=== PATIENT | male | born 1970 | race Caucasian/White ===

== ENCOUNTER 2016-06-23 16:18 | Emergency (ER) | payer OTHER | END 2016-06-23 17:48 | disposition home or self-care (01) | DX: S20.219A Contusion of unspecified front wall of thorax, initial encounter (principal); V00.311A Fall from snowboard, initial encounter; Y93.23 Activity, snow (alpine) (downhill) skiing, snowboarding, sledding, tobogganing and snow tubing; Y92.89 Other specified places as the place of occurrence of the external cause; Z87.891 Personal history of nicotine dependence ==

== ENCOUNTER 2018-07-05 14:57 | Outpatient (CLI) | payer OTHER ==
--- NOTE | 2018-07-06 11:30 | Ultrasound Report ---
Reason: BONE SOFT TISSUE SKIN NEOPLASM UNSPEC BEHAVIOR Procedure Date: 07/05/2018 Accession Number: [id number] / [id number] Procedure: US - Head or Neck Soft Tissue CPT Code: FULL RESULT: EXAM: LEFT POSTERIOR NECK ULTRASOUND, LIMITED EXAM DATE: 07/05/2018 03:08 PM. CLINICAL HISTORY: 47-year-old male with left neck mass for several years, increasing in size over the past year. Intermittent pressure and itchiness. COMPARISON: None. TECHNIQUE: Real-time sonographic imaging was performed in the area of palpable concern left posterior neck by the hardware technician utilizing color-flow. Limited scanning on the contralateral side for comparison. Multiple apprenticeship training representative static images were saved for review. FINDINGS: In the area of palpable concern left posterior neck there is an ovoid well-circumscribed solid nonvascular heterogeneous mass, predominantly hypoechoic, with central increased density, 2.6 x 1.2 x 2.0 cm. No additional mass or adenopathy noted. No similar finding on the contralateral side. No overlying skin thickening, edema or increased vascularity. IMPRESSION: Probable mildly to moderately enlarged left posterior neck lymph node in area of palpable concern, 2.6 cm in maximum diameter. Neck CT without and with contrast would be most useful for further assessment. No other abnormalities noted or similar finding on the contralateral side. RADIA
== END 2018-07-05 14:58 | disposition home or self-care (01) ==
LOC: DI 14:57
PROVIDERS: ATTEND Physician Assistant Medical
DX: D49.2 Neoplasm of unspecified behavior of bone, soft tissue, and skin (principal)
CPT/HCPCS: 76536

== ENCOUNTER 2018-07-12 07:08 | Outpatient (CLI) | payer OTHER ==
[2018-07-12] MEDS ORDERED: IOVERSOL 320 100 ML VIAL IVP ONE ×2 (07:18→07:56)
--- NOTE | 2018-07-12 08:58 | CT Report ---
Reason: BONE SOFT TISSUE SKIN NEOPLASM UNSP BEHAVIOR Procedure Date: 07/12/2018 Accession Number: [id number] / [id number] Procedure: CT - SOFT TISSUE NECK W CPT Code: FULL RESULT: EXAM: CT SOFT TISSUE NECK WITH CONTRAST. EXAM DATE: 07/12/2018 07:33 AM. HISTORY: Left neck mass for several years increasing in size over the past year, intermittent pressures and itchiness. Ultrasound identifies a 2.6 x 1.2 x 2.0 cm hypoechoic lesion in the left posterior neck with central hyperechogenicity. COMPARISONS: Ultrasound 07/05/2018. TECHNIQUE: Routine soft tissue neck CT protocol. Reconstructions: Coronal and sagittal. IV contrast: OPTI 320 80mL. In accordance with CT protocol optimization, one or more of the following dose reduction techniques were utilized for this exam: automated exposure control, adjustment of mA and/or KV based on patient size, or use of iterative reconstructive technique. FINDINGS: Radiopaque skin marker placed over the lesion in the left posterior neck (image 44 series 3). Deep to the skin marker in the superficial subcutaneous fat overlying the left sternocleidomastoid muscle at the level of the inferior parotid is a 15 x 20 x 22 mm hypodense (less than 20 HU) cystic/cystlike lesion. There is no apparent mural nodularity, thickened peripheral enhancement or surrounding fat stranding. There is no evidence for lymphadenopathy by size criteria. Visualized intracranial contents appear normal. Limited evaluation of the intracranial arterial and dural venous sinus structures are unremarkable. There is no mass, mass effect or midline shift or hydrocephalus. Orbits appear unremarkable. There is near complete opacification of the ethmoid sinus. Frothy secretions seen in bilateral maxillary sinus antra. Infratemporal fossa, loss prevention and safety manager space, parapharyngeal space and retropharyngeal space appear normal. Tongue base, floor of mouth, and mobile tongue appear normal. Parotid glands and submandibular glands appear normal. There is no evidence for sialolithiasis, or sialoadenitis. Nasopharyngeal, oropharyngeal, hypopharyngeal mucosa appear unremarkable. Vallecula and piriform sinus appear normal. Larynx, subglottic trachea appear normal. Thyroid gland appear unremarkable. Visualized aortic arch and pulmonary artery appear unremarkable. Visualized lungs are clear. Carotid space appear unremarkable. Visualized bilateral vertebral arteries appear unremarkable. Mild multilevel degenerative changes of the cervical spine. No suspicious lytic or sclerotic osseous lesions. IMPRESSION: 1. In the left posterior neck, subcutaneous fat, superficial to the left sternocleidomastoid muscle is a 15 x 20 x 22 mm homogeneously hypodense (less than 20 HU) cystic/cystlike lesion. This site corresponds to site of symptom, correlating deep to the radiopaque skin marker. CT appearance most suspicious for sebaceous cyst. There is no fat stranding or thickened peripheral enhancement to suggest superimposed infection. Location superficial to the sternocleidomastoid muscle is atypical for branchial cleft cyst. Other differential considerations such as lymphatic malformation or cystic lymphadenopathy considered less likely. 2. Otherwise normal CT of the soft tissue neck. RADIA
== END 2018-07-12 07:09 | disposition home or self-care (01) ==
LOC: DI 07:08
PROVIDERS: ATTEND Physician Assistant Medical
DX: D49.2 Neoplasm of unspecified behavior of bone, soft tissue, and skin (principal)
CPT/HCPCS: 70491; Q9967

== ENCOUNTER 2019-03-10 07:07 | Day surgery (SDC) | payer OTHER ==
[2019-03-10] MEDS ORDERED: fentaNYL 100 MCG/2 ML VIAL IVP ONE (07:08)
[2019-03-10] MEDS ORDERED: MIDAZOLAM 2 MG/2 ML VIAL IVP ONE (07:08)
[2019-03-10] MEDS ORDERED: LACTATED RINGERS 1,000 ML IV ONE (07:43)
[2019-03-10 10:03] VITALS: BP 95/54
== END 2019-03-10 07:08 | disposition home or self-care (01) ==
LOC: SDS 07:07
PROVIDERS: ATTEND Surgery
PROC: 0DJD8ZZ Inspection of Lower Intestinal Tract, Via Natural or Artificial Opening Endoscopic (ICD-10-PCS; principal; 2019-03-10 08:45)
DX: Z12.11 Encounter for screening for malignant neoplasm of colon (principal); K64.8 Other hemorrhoids; Z87.891 Personal history of nicotine dependence
CPT/HCPCS: 45378; J7120

== ENCOUNTER 2019-09-30 09:48 | Emergency (ER) | payer OTHER ==
[2019-09-30 10:36] LABS: BASOPHILS # (AUTO) 0.1 10^3/uL (0.0-0.1); BASOPHILS % (AUTO) 1.3 %; EOSINOPHILS # (AUTO) 0.3 10^3/uL (0.0-0.7); EOSINOPHILS % (AUTO) 4.1 %; HGB - HEMOGLOBIN 15.6 g/dL (14.0-18.0); LYMPHOCYTES # (AUTO) 2.1 10^3/uL (1.5-3.5); LYMPHOCYTES % (AUTO) 30.4 %; MEAN CORPUSCULAR HEMOGLOBIN 30.6 pg (27.0-31.0); MEAN PLATELET VOLUME 10.2 fL (7.4-11.4); MONOCYTES # (AUTO) 0.4 10^3/uL (0.0-1.0); MONOCYTES % (AUTO) 5.3 %; NEUTROPHILS % (AUTO) 58.6 %; PLT - PLATELET COUNT 227 10^3/uL (130-450); RED CELL DISTRIBUTION WIDTH 12.8 % (12.0-15.0); WHITE BLOOD COUNT 6.8 x10^3/uL (4.8-10.8)
--- NOTE | 2019-09-30 10:38 | XRAY Report ---
Reason: CHEST PAIN,COUGH SOA Procedure Date: 09/30/2019 Accession Number: [id number] / [id number] Procedure: XR - Chest 2 View X-Ray CPT Code: 08142 Final Report FULL RESULT: EXAM: CHEST RADIOGRAPHY EXAM DATE: 09/30/2019 10:21 AM. CLINICAL HISTORY: CHEST PAIN, COUGH SOA. COMPARISON: [facility] W/PA CHEST LT 06/23/2016 4:59 PM. TECHNIQUE: 2 views. FINDINGS: Lungs/Pleura: No focal opacities evident. No pleural effusion. No pneumothorax. Normal volumes. Mediastinum: Heart and mediastinal contours are unremarkable. Other: None. IMPRESSION: Normal 2-view chest radiography. RADIA
[2019-09-30 10:46] LABS: ALBUMIN 4.4 g/dL (3.2-5.5); ALBUMIN/GLOBULIN RATIO 1.5 (1.0-2.2); BILIRUBIN,TOTAL 1.1 mg/dL (0.2-1.0); CREATININE 0.8 mg/dL (0.6-1.2); TOTAL PROTEIN 7.4 g/dL (6.7-8.2)
--- NOTE | 2019-09-30 11:23 | ED Physician Documentation ---
PD HPI CHEST PAIN - Stated complaint Stated Complaint: SOA,CHEST PX - Chief complaint Chief Complaint: Cardiac - History obtained from History obtained from: Patient - Additional information Additional information: Patient comes emergency department complaining of productive cough with left- sided chest and back pain for the last 2 weeks. He states that his breathing feels tight and it feels the same as when he had pneumonia before. Patient is a smoker and states he has not been smoking for the last couple of weeks. He states he is quit previously but has smoked for most of his adult life. Patient is not known to have asthma or COPD. He states that he has not had any fevers or chills. He denies any rhinorrhea or sore throat. The patient states that he has had some pain in his left shoulder along with the pain in his chest. He states that he does notice worsening of the chest and back pain when he takes a deep breath or coughs. Patient states he feels tired but otherwise is without further symptoms. No other complaints at this time. No swelling in his lower extremities or pain in his calves. Review of Systems Ten Systems: 10 systems reviewed and negative Constitutional: reports: Reviewed and negative Eyes: reports: Reviewed and negative Ears: reports: Reviewed and negative Nose: reports: Reviewed and negative Throat: reports: Reviewed and negative Cardiac: reports: Chest pain / pressure Respiratory: reports: Dyspnea, Cough GI: reports: Reviewed and negative : reports: Reviewed and negative Skin: reports: Reviewed and negative Musculoskeletal: reports: Reviewed and negative Neurologic: reports: Reviewed and negative Psychiatric: reports: Reviewed and negative Endocrine: reports: Reviewed and negative Immunocompromised: reports: Reviewed and negative PD PAST MEDICAL HISTORY - Past Medical History Cardiovascular: None Respiratory: Other Endocrine/Autoimmune: None GI: None : Kidney stones HEENT: Other Psych: None Musculoskeletal: None Derm: None - Past Surgical History 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 - Present Medications Home Medications: Ambulatory Orders Medication Instructions Recorded Confirmed Aspirin Chewable [[facility] Nicola 81 mg PO DAILY 09/30/19 09/30/19 Aspirin] Azithromycin [Zithromax] 0 mg PO DAILY #6 tablet 09/30/19 Nicotine 14 mg Patch [Nicoderm] 1 each TOP Q24H 09/30/19 09/30/19 - Allergies Allergies/Adverse Reactions: Allergies Allergy/AdvReac Type Severity Reaction Status Date / Time acetaminophen [From Vicodin] Allergy Itching Verified 09/30/19 10:05 hydrocodone [From Vicodin] Allergy Itching Verified 09/30/19 10:05 oxycodone Allergy Itching Verified 09/30/19 10:05 - Social History Does the pt smoke?: No Smoking Status: Never smoker Does the pt drink ETOH?: No Does the pt have substance abuse?: No - Immunizations Immunizations are current?: Yes - POLST Patient has POLST: No PD ED PE NORMAL - Vitals Vital signs reviewed: Yes - General General: Alert and oriented X 3, No acute distress, Well developed/nourished - HEENT HEENT: Atraumatic, PERRL, EOMI, Moist mucous membranes - Neck Neck: Supple, no meningeal sign - Cardiac Cardiac: RRR, No murmur, Strong equal pulses - Respiratory Respiratory: No respiratory distress, Clear bilaterally - Abdomen Abdomen: Soft, Non tender, Non distended - Derm Derm: Normal color, Warm and dry, No rash - Extremities Extremities: No deformity, No tenderness to palpate, No edema, No calf tenderness / cord - Neuro Neuro: Alert and oriented X 3, design agent 2-12 intact, No motor deficit, No sensory deficit, Normal speech - Psych Psych: Normal mood, Normal affect Results - Vitals Vitals: Oxygen O2 Source Room air - Labs Labs: Laboratory Tests 09/30/19 09/30/19 09/30/19 10:20 10:20 10:20 WBC 6.8 RBC 5.10 Hgb 15.6 Hct 45.9 MCV 90.0 MCH 30.6 MCHC 34.0 RDW 12.8 Plt Count 227 MPV 10.2 Neut # (Auto) 4.0 Lymph # (Auto) 2.1 Cedar # (Auto) 0.4 Eos # (Auto) 0.3 Baso # (Auto) 0.1 Absolute Nucleated RBC 0.00 Nucleated RBC % 0.0 Sodium 137 Potassium 4.2 Chloride 106 Carbon Dioxide 24 Anion Gap 7.0 BUN 14 Creatinine 0.8 Estimated GFR (MDRD) 102 Glucose 89 Calcium 9.0 Total Bilirubin 1.1 H AST 21 ALT 26 Alkaline Phosphatase 52 Troponin I High Sens 5.3 Total Protein 7.4 Albumin 4.4 Globulin 3.0 Albumin/Globulin Ratio 1.5 Lipase 37 - Rads (name of study) CXR Radiology: Final report received, EMP read indepedently, See rad report (No pneumonia) PD MEDICAL DECISION MAKING - ED course Complexity details: reviewed old records, reviewed results, re-evaluated patient, considered differential, d/w patient ED course: Patient was worked up with labs, EKG, and chest x-ray. He did report that he had had a negative cardiac work-up, including treadmill test and echo last year at [facility]. Patient states he thinks this was in the latter part of 2019. The patient is a smoker and had a productive cough for the last couple of weeks, and I did feel he should be treated for bronchitis. His chest x-ray was clear for any signs of pneumonia or viral groundglass appearance. He does not have a fever or any other upper respiratory symptoms, and I feel the likelihood of COVID is low. Patient is advised to follow-up with his primary care physician, should his symptoms fail to improve in the next week. Departure - Departure Disposition: 01 Home, Self Care Clinical Impression: Bronchitis Condition: Stable Instructions: Bronchitis Acute Dc Prescriptions: Azithromycin [Zithromax] 0 mg PO DAILY #6 tablet Discharge Date/Time: 09/30/19 12:00
[2019-09-30 11:44] VITALS: BP 140/85
== END 2019-09-30 12:00 | disposition home or self-care (01) ==
LOC: ED 09:48
DX: J40 Bronchitis, not specified as acute or chronic (principal); F17.200 Nicotine dependence, unspecified, uncomplicated; Z79.82 Long term (current) use of aspirin
CPT/HCPCS: 36415; 71046; 80053; 83690; 84484; 85025; 93005; 99284

== ENCOUNTER 2022-03-13 12:52 | Emergency (ER) | payer OTHER ==
--- NOTE | 2022-03-13 13:34 | XRAY Report ---
PROCEDURE: Chest 1 View X-Ray INDICATIONS: Chest Pain TECHNIQUE: One view of the chest was acquired. COMPARISON: 09/30/2019 FINDINGS: Surgical changes and devices: None. Lungs and pleura: No pleural effusions or pneumothorax. Lungs are clear. Mediastinum: Mediastinal contours appear normal. Heart size is normal. Bones and chest wall: No suspicious bony lesions. Overlying soft tissues appear unremarkable. IMPRESSION: No acute radiographic abnormality. Reviewed by: Tigre Ballesteros MD on 03/13/2022 1:33 PM PDT Approved by: Tigre Ballesteros MD on 03/13/2022 1:33 PM PDT Station ID: [id number]
[2022-03-13 13:41] LABS: BASOPHILS # (AUTO) 0.1 10^3/uL (0.0-0.1); EOSINOPHILS # (AUTO) 0.3 10^3/uL (0.0-0.7); EOSINOPHILS % (AUTO) 4.7 %; HCT - HEMATOCRIT 42.4 % (42.0-52.0); HGB - HEMOGLOBIN 14.1 g/dL (14.0-18.0); LYMPHOCYTES # (AUTO) 2.4 10^3/uL (1.5-3.5); LYMPHOCYTES % (AUTO) 32.4 %; MEAN CORPUSCULAR HEMOGLOBIN 29.1 pg (27.0-31.0); MEAN CORPUSCULAR HGB CONC 33.3 g/dL (32.0-36.0); MEAN CORPUSCULAR VOLUME 87.6 fL (80.0-94.0); MEAN PLATELET VOLUME 10.2 fL (7.4-11.4); MONOCYTES # (AUTO) 0.5 10^3/uL (0.0-1.0); MONOCYTES % (AUTO) 6.9 %; NEUTROPHILS % (AUTO) 54.7 %; PLT - PLATELET COUNT 237 10^3/uL (130-450); RED BLOOD COUNT 4.84 10^6/uL (4.70-6.10); WHITE BLOOD COUNT 7.3 x10^3/uL (4.8-10.8)
--- NOTE | 2022-03-13 13:58 | ED Physician Documentation ---
PD HPI CHEST PAIN - Stated complaint Stated Complaint: CHEST PAIN - Chief complaint Chief Complaint: Cardiac - History obtained from History obtained from: Patient - History of Present Illness Timing - onset: How many hours ago (2) Timing - onset during: Rest Timing - details: Abrupt onset Pain level max: 7 Pain level now: 5 Quality: Pressure, Tightness, Aching Location: Substernal Radiation: Back Improved by: Nothing. No: Rest, Oxygen, Nitro, ASA, Antacids, Other medication Worsened by: No: Exertion, Inspiration, Eating, Movement, Palpation, Position Associated symptoms: Nausea. No: Shortness of air, Diaphoresis, Vomiting, Feeling faint / dizzy, General Weakness, Palpitations, Cough - Additional information Additional information: Patient is a 51-year-old male who presents to the emergency department complaining of chest pain. This started about 2 hour prior to arrival. Nothing seems to make it better or worse. He states it felt like it was in his upper back as well. Has not had similar symptoms previously. Did not change with exertion or inspiration. No history of ACS. He did feel slightly nauseated. No vomiting. No fevers. No chills. No recent illnesses. Currently feeling better. No recent travel or surgery. No leg swelling. 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 - Present Medications Home Medications: Ambulatory Orders Medication Instructions Recorded Confirmed Aspirin Chewable [[facility] Nicola 81 mg PO DAILY 09/30/19 09/30/19 Aspirin] Azithromycin [Zithromax] 0 mg PO DAILY #6 tablet 09/30/19 Nicotine 14 mg Patch [Nicoderm] 1 each TOP Q24H 09/30/19 09/30/19 - Allergies Allergies/Adverse Reactions: Allergies Allergy/AdvReac Type Severity Reaction Status Date / Time acetaminophen [From Vicodin] Allergy Itching Verified 03/13/22 13:00 hydrocodone [From Vicodin] Allergy Itching Verified 03/13/22 13:00 oxycodone Allergy Itching Verified 03/13/22 13:00 - Social History Does the pt smoke?: No Smoking Status: Never smoker Does the pt drink ETOH?: No Does the pt have substance abuse?: No - Immunizations Immunizations are current?: Yes - POLST Patient has POLST: No PD ED PE NORMAL - Vitals Vital signs reviewed: Yes - General General: Alert and oriented X 3, No acute distress - HEENT HEENT: PERRL, Moist mucous membranes - Neck Neck: Supple, no meningeal sign - Cardiac Cardiac: RRR, No murmur, Strong equal pulses - Respiratory Respiratory: No respiratory distress, Clear bilaterally - Abdomen Abdomen: Soft, Non tender, Non distended - Back Back: No spinal TTP, Other (No tenderness over the back or chest) - Derm Derm: Warm and dry - Extremities Extremities: No edema, No calf tenderness / cord - Neuro Neuro: Alert and oriented X 3 - Psych Psych: Normal mood, Normal affect Results - Vitals Vitals: Vital Signs - 24 hr 03/13/22 03/13/22 03/13/22 12:58 13:30 14:00 Temperature 36.7 C Heart Rate 70 62 63 Respiratory 18 18 15 Rate Blood Pressure 144/86 H 132/74 H 139/86 H O2 Saturation 97 99 95 03/13/22 03/13/22 03/13/22 14:30 15:26 16:37 Temperature Heart Rate 62 60 57 L Respiratory 15 17 13 Rate Blood Pressure 149/98 H 143/91 H 131/89 H O2 Saturation 100 96 95 Oxygen O2 Source Room air - EKG (time done) 1302 Rate: Rate (enter#) (68) Rhythm: NSR Hitchcock: Normal Intervals: Normal MS QRS: Normal Ischemia: Other (Flattened T waves in the lateral leads) - Labs Labs: Laboratory Tests 03/13/22 03/13/22 03/13/22 13:33 13:33 13:33 WBC 7.3 RBC 4.84 Hgb 14.1 Hct 42.4 MCV 87.6 MCH 29.1 MCHC 33.3 RDW 13.0 Plt Count 237 MPV 10.2 Neut # (Auto) 4.0 Lymph # (Auto) 2.4 Reynolds # (Auto) 0.5 Eos # (Auto) 0.3 Baso # (Auto) 0.1 Absolute Nucleated RBC 0.00 Nucleated RBC % 0.0 Sodium 139 Potassium 3.9 Chloride 106 Carbon Dioxide 25 Anion Gap 8.0 BUN 17 Creatinine 0.8 Estimated GFR (MDRD) 101 Glucose 114 H Calcium 9.2 Total Bilirubin 0.7 AST 30 ALT 47 Alkaline Phosphatase 53 Troponin I High Sens 4.0 Total Protein 6.8 Albumin 4.2 Globulin 2.6 Albumin/Globulin Ratio 1.6 Lipase 49 03/13/22 15:24 WBC RBC Hgb Hct MCV MCH MCHC RDW Plt Count MPV Neut # (Auto) Lymph # (Auto) Reynolds # (Auto) Eos # (Auto) Baso # (Auto) Absolute Nucleated RBC Nucleated RBC % Sodium Potassium Chloride Carbon Dioxide Anion Gap BUN Creatinine Estimated GFR (MDRD) Glucose Calcium Total Bilirubin AST ALT Alkaline Phosphatase Troponin I High Sens 5.3 Total Protein Albumin Globulin Albumin/Globulin Ratio Lipase - Rads (name of study) CT angiogram chest Radiology: Final report received, EMP read contemporaneously, See rad report Chest x-ray Radiology: Final report received, EMP read contemporaneously, See rad report PD MEDICAL DECISION MAKING - ED course Complexity details: reviewed results, re-evaluated patient, considered differential (No ST elevation AK, no aortic dissection, no PE, no tension pneumothorax, no aortic aneurysm), d/w patient ED course: 51-year-old male with chest pain. Unclear etiology. Initial concern for possible aortic dissection given the anterior and posterior pain. CT angiogram is negative. EKG does not show any acute abnormalities. Negative troponin x2. Patient is fully asymptomatic here. Recommend that he follow-up with his PCP for further care. Recommend cardiac stress test. Also encouraged the patient to stop smoking. Patient counseled regarding signs and symptoms for which I believe and urgent re-evaluation would be necessary. Patient with good understanding of and agreement to plan and is comfortable going home at this time This document was made in part using voice recognition software. While efforts are made to proofread this document, sound alike and grammatical errors may occur. Departure - Departure Disposition: 01 Home, Self Care Clinical Impression: Chest pain Qualifiers: Chest pain type: unspecified Qualified Code(s): R07.9 - Chest pain, unspecified Condition: Good Instructions: ED Chest Pain Atypical Unkn Cause Follow-Up: Elida Guerrero ARNP [Primary Care Provider] - Within 1 week Comments: The cause of your symptoms is unclear today. Please follow-up with your doctor for further care including a cardiac stress test. Please call tomorrow to make an appointment. Please return if you worsen. Your EKG, chest x-ray, CT angiogram of the chest and troponin are negative. Discharge Date/Time: 03/13/22 16:46
[2022-03-13 14:02] LABS: ALBUMIN 4.2 g/dL (3.2-5.5); ALBUMIN/GLOBULIN RATIO 1.6 (1.0-2.2); BILIRUBIN,TOTAL 0.7 mg/dL (0.2-1.0); CALCIUM 9.2 mg/dL (8.5-10.3); CREATININE 0.8 mg/dL (0.6-1.2); POTASSIUM 3.9 mmol/L (3.5-5.0); TOTAL PROTEIN 6.8 g/dL (6.7-8.2)
[2022-03-13] MEDS ORDERED: iohexoL-300 100 ML VIAL ONE (14:26)
--- NOTE | 2022-03-13 15:13 | CT Report ---
PROCEDURE: ANGIO CHEST W/WO INDICATIONS: chest pain/back pain sudden onset CONTRAST: 100ml Omnipaque 300 TECHNIQUE: After the administration of intravenous contrast, 2 mm axial images were acquired from the pulmonary apices to the posterior costophrenic angles during the arterial phase. In addition, 1 mm lung kernel and 5 mm soft tissue kernel reconstructions were performed. 3-dimensional coronal oblique maximum int ensity projection (MIP) reformats, 8 mm axial MIP, and 5 mm coronal and sagittal MPR reformats were t hen performed through the thorax. For radiation dose reduction, the following was used: automated exp osure control, adjustment of mA and/or kV according to patient size. COMPARISON: CT abdomen pelvis 01/06/2022. FINDINGS: Image quality: Excellent. Pulmonary arteries: Pulmonary arteries are normal in size, and demonstrate no intraluminal filling d efects to suggest central pulmonary embolism. Lungs and pleura: No acute air space opacity. Right lower lobe pulmonary nodule measuring 0.2 cm, (7/ 214). Mild paraseptal emphysema. No pleural effusions or pneumothorax. Central and peripheral airway s are patent. Mediastinum: Heart size is normal, without pericardial effusion. No mediastinal or hilar adenopathy . Thoracic aorta is normal in caliber and enhancement. Esophagus is normal in caliber, without hiat al hernia. Bones and chest wall: No suspicious bony lesions. Ribs and thoracic spine appear intact throughout. No axillary or supraclavicular adenopathy. The thyroid is normal in size and there are no incident al findings. Abdomen: Visualized upper abdominal solid organs appear normal in the early arterial phase of enhanc ement. Small nonobstructing left kidney stone. IMPRESSION: 1. No pulmonary embolism. 2. No acute airspace opacity. 3. Small left kidney stone. Reviewed by: Greg Tanner MD on 03/13/2022 3:11 PM PDT Approved by: Greg Tanner MD on 03/13/2022 3:11 PM PDT Station ID: [id number]
[2022-03-13 16:38] VITALS: BP 131/89
[2022-03-13] MEDS ORDERED: iohexoL-300 100 ML VIAL IVP ONE (16:46)
== END 2022-03-13 16:46 | disposition home or self-care (01) ==
LOC: ED 12:52
DX: R07.9 Chest pain, unspecified (principal)
CPT/HCPCS: 36415; 71045; 71275; 80053; 83690; 84484; 85025; 93005; 99284; Q9967